=== PATIENT | female | born 1965 | race Caucasian/White ===

== ENCOUNTER 2020-02-23 06:30 | Day surgery (SDC) | payer OTHER, SELFPAY ==
--- NOTE | 2020-02-22 10:28 | HO.ANESPROP2 ---
Documented by User: Joana Graham 02/22/20 15:52 HPI - Anesthesia Eval Consult details Narrative: 54yo F for Colonoscopy Cardiac Clearance appointment for 02/22/20 afternoon, pending receipt [facility] Past Medical History Medical History (Updated 02/23/20 @ 08:14 by Mercy Renee) Asthma Atrial fibrillation CAD (coronary artery disease) Cardiomyopathy CVA (cerebral vascular accident) Depression Diabetes Dyspnea GERD (gastroesophageal reflux disease) Hx of low back pain Hyperlipemia Hypertension ICD (implantable cardioverter-defibrillator) in place Morbid (severe) obesity due to excess calories Myocardial infarct Overactive bladder Rib fractures Sleep apnea Surgical History Surgical History (Updated 02/23/20 @ 07:56 by Mercy Renee) H/O cervical discectomy History of cardiac cath History of urologic surgery Hx of colonoscopy Social History Social History Smoking Status: Light tobacco smoker Smoked in Last 30 Days: Yes Use of substances other than those prescribed or required for medical reasons: No Have you been hit, kicked, punched, or otherwise hurt by someone within the past year? If so, by whom?: No Advance Directives: No Advance Directives Information Provided: Yes Meds Allergies Allergy/AdvReac Type Severity Reaction Status Date / Time No Known Allergies Allergy Unverified 01/21/20 17:23 [No Known Allergies*] Home Medications Medication Instructions Recorded Confirmed Type aspirin [Aspir-81] 81 mg PO DAILY 02/19/20 History budesonide-formoterol [Symbicort] 2 puff INHALATION BID PRN 02/19/20 History carvedilol 25 mg PO BID 02/19/20 History dulaglutide [Trulicity] 1.5 mg SUBCUT QWEEK 02/19/20 History ipratropium bromide 2 puff INHALATION QID 02/19/20 History levalbuterol tartrate [Xopenex HFA] 2 inh INHALATION Q6H 02/19/20 History lorazepam 02/19/20 History losartan 50 mg PO DAILY 02/19/20 History metformin 1,000 mg PO DAILY 02/19/20 History metoprolol tartrate 50 mg PO BID 02/19/20 History omeprazole 20 mg PO DAILY 02/19/20 History pravastatin 80 mg PO BEDTIME 02/19/20 History sertraline [Zoloft] 25 mg PO DAILY 02/19/20 History spironolactone 12.5 mg PO DAILY 02/19/20 History warfarin [Coumadin] 5 mg PO DAILY 02/19/20 History Exam Exam Date and Time: February 22, 2020 1028 Documented by User: Mercy Renee 02/23/20 08:16 [facility] Past Medical History Medical History (Updated 02/23/20 @ 08:14 by Mercy Renee) Asthma Atrial fibrillation CAD (coronary artery disease) Cardiomyopathy CVA (cerebral vascular accident) Depression Diabetes Dyspnea GERD (gastroesophageal reflux disease) Hx of low back pain Hyperlipemia Hypertension ICD (implantable cardioverter-defibrillator) in place Morbid (severe) obesity due to excess calories Myocardial infarct Overactive bladder Rib fractures Sleep apnea Family History Family history of problems with anesthesia: No Surgical History Surgical History (Updated 02/23/20 @ 07:56 by Mercy Renee) H/O cervical discectomy History of cardiac cath History of urologic surgery Hx of colonoscopy History of Problems with Anesthesia: Yes (Nausea) Social History Social History Smoking Status: Light tobacco smoker Smoked in Last 30 Days: Yes Use of substances other than those prescribed or required for medical reasons: No Have you been hit, kicked, punched, or otherwise hurt by someone within the past year? If so, by whom?: No Advance Directives: No Advance Directives Information Provided: Yes Meds Allergies Allergy/AdvReac Type Severity Reaction Status Date / Time No Known Allergies Allergy Unverified 01/21/20 17:23 [No Known Allergies*] Home Medications Medication Instructions Recorded Confirmed Type aspirin [Aspir-81] 81 mg PO DAILY 02/19/20 History budesonide-formoterol [Symbicort] 2 puff INHALATION BID PRN 02/19/20 History carvedilol 25 mg PO BID 02/19/20 History dulaglutide [Trulicity] 1.5 mg SUBCUT QWEEK 02/19/20 History ipratropium bromide 2 puff INHALATION QID 02/19/20 History levalbuterol tartrate [Xopenex HFA] 2 inh INHALATION Q6H 02/19/20 History lorazepam 02/19/20 History losartan 50 mg PO DAILY 02/19/20 History metformin 1,000 mg PO DAILY 02/19/20 History metoprolol tartrate 50 mg PO BID 02/19/20 History omeprazole 20 mg PO DAILY 02/19/20 History pravastatin 80 mg PO BEDTIME 02/19/20 History sertraline [Zoloft] 25 mg PO DAILY 02/19/20 History spironolactone 12.5 mg PO DAILY 02/19/20 History warfarin [Coumadin] 5 mg PO DAILY 02/19/20 History Exam Height,Weight and Vital Signs: Vital Signs Temp Pulse Resp BP Pulse Ox 02/23/20 07:03 97.2 F 79 16 131/79 94 Pertinent Lab Results Pertinent Lab Results: Echo?when: LV poorly visualized. LV Systolic function is severely reduced. EF 25-30%. Moderate global hypokinesis with regional variation. Mid to distal anterior, anteroseptal and apical wall akinesis. Impaired LV relaxation.LV filling pressures normal. RV grossly normal. 02/23/20 07:00 PT with INR [Prothrombin Time INR] Stat 02/23/20 07:01 Glucose, Whole Blood Routine 02/23/20 07:30 Metoclopramide HCl [Reglan] 10 mg .ROUTE .STK-MED ONE Laboratory Last Values PT 12.2 SEC (10.8-13.0) 02/23/20 07:00 INR 1.0 (0.9-1.1) 02/23/20 07:00 POC Glucose 148 mg/dL (60-115) H 02/23/20 07:01 Airway Mallampati Class: III (Small mouth, high arched palate) TM Dist: >3cm Neck ROM: Full Heart: RRR Lungs: CTAB Assessment and Plan Assessment Anesthesia Assessment: Anesthesia Plan Discussed and Chart Reviewed Final Anesthetic Review NPO: Yes ASA Class: IV Final Preanesthetic Review: No Changes in Pt Med Stat, Meds/Allgs Chart Reviewed, Consent Obtained/Reviewed and Anes Risks/Benef Reviewed Patient Risk: High Procedure Risk: Low Anesthetic Plan Anesthetic Plan: MAC: (Patient aware she is at high risk for anesthesia. Was also discussed by kicking machine operator.) Disposition: Standard PACU and Extended PACU
[2020-02-23 06:40] VITALS: BMI 45.4
[2020-02-23 07:03] VITALS: BP 131/79; PULSE 79; RESP 16; TEMP 36.2; O2SAT 94
[2020-02-23 07:09] LABS: Glucose, Whole Blood 148 mg/dL (60-115)
[2020-02-23 07:17] LABS: Prothrombin Time 12.2 SEC (10.8-13.0)
--- NOTE | 2020-02-23 07:51 | MHC.SHP ---
Pre-Procedural Eval Section A The patient is an INPATIENT: No The History & Physical has been completed within 30 days and I have reviewed it.: No Section B Chief Complaint: HX Adenomatous Polyps Details of Present Illness: Colon cancer screening Multiple medical problems--CALLIE Relevant Family History (Specify if Yes): No Relevant Social History: None Present Medications: see Short Stay Collaborative assessment Medical History: Significant History (CALLIE, Morbid Obesity, [id number] LV function-apical thrombus, S/P embolic issures, atrial fibrillation, Asthma) History of Previous Operations: No relevant previous surgery Allergies: Allergies Allergy/AdvReac Type Severity Reaction Status Date / Time No Known Allergies Allergy Unverified 01/21/20 17:23 [No Known Allergies*] Review of Systems Sugical H&P ROS: Negative: Constitution, Neurological, Psychiatric and Gastrointestinal and Yes, Specify: Cardiovascular (see HPI) and Respiratory (CALLIE--asthma) Review of Systems Comment: Patient does not use CPAP; She uses her inhalers prn. Exam Surgical H&P Exam: Normal: HEENT, Normal: Heart and Normal: Extremities and Significant Findings: Lungs (rhonchi, expiratory wheezing) and Significant Findings: Abdomen (marked obesity) Plan Diagnosis/Plan: Unchanged Patient has been examined and remains a candidate for the planned procedure; yes
[2020-02-23] MEDS: Albuterol Sulfate (0.083%) 2.5 MG/3 ML VIAL.NEB INHALE (08:02)
[2020-02-23 08:53] VITALS: BP 120/73; PULSE 86; RESP 16; TEMP 37.6; O2SAT 96
--- NOTE | 2020-02-23 08:53 | PM.PROC ---
Brief Operative Note Date of procedure: 02/23/20 Pre-op diagnosis: Colon cancer screening; Hx Tubular adenoma Post-op diagnosis: other (removed 2 tubular adenomas, Internal Hemorrhoids) Procedure: Colonoscopy with excisional polypectomy x1, Hot snare polypectomy small hex--ERBE Anesthesia: MAC (JUAN Souza) Surgeon: Mila Oliveros Pathology: other (Ileocecal valve, rectal about 4 cm) Condition: stable Disposition: PACU
[2020-02-23 09:10] VITALS: BP 139/83; PULSE 77; RESP 16; TEMP 36.6; O2SAT 97
--- NOTE | 2020-02-23 09:42 | HO.POSTANES ---
Post Anesthesia Evaluation Post Anesthesia Evaluation Vital Signs: Vital Signs Temp Pulse Resp BP Pulse Ox 02/23/20 09:10 97.8 F 77 16 139/83 97 02/23/20 08:53 99.7 F 86 16 120/73 96 02/23/20 07:03 97.2 F 79 16 131/79 94 Anesthesia: Monitored Mental Status: Awake Pain Control: Satisfactory Nausea/Vomiting: None Hydration: Adequate Anesthesia-Related Issues: No Anes. Related Issues
--- NOTE | 2020-02-23 09:59 | OP_ITS ---
SURGEON: Mila Oliverso MD PREOPERATIVE DIAGNOSIS: History of tubular adenoma PROCEDURE PERFORMED: Colonoscopy with excisional polypectomy x1 using cold biopsy forceps, hot snare polypectomy x1; hexagonal small snare, Erbe cautery. ESTIMATED BLOOD LOSS: Minimal. COMPLICATIONS: None. ANESTHESIA: Monitored. ANESTHESIOLOGIST: Marisela Souza CRNA. ASSISTANTS: No teacher's assistant. SPECIMENS: Specimens removed; diminutive polyp, ileocecal valve, rectal polyp, 1 to 2 mm. POSTOPERATIVE DIAGNOSES: Two tubular adenomas removed, internal hemorrhoids. FILTER WORKER: Dr. Oliveros. FINDINGS: Digital rectal exam revealed no specific lesion. Video colonoscope was introduced without difficulty. It was navigated into the rectosigmoid and sigmoid, slowly on up through sigmoid, descending, transverse ascending colon. With gentle extrinsic abdominal pressure, we were able to facilitate movement into the cecum. Appendiceal orifice was seen. Ileocecal valve was seen. Various areas were flushed and suctioned throughout the procedure. Prep overall was good. There was a diminutive polyp noted on the edge of the ileocecal valve. This was removed excisionally with a cold biopsy forceps. Slow rotational views on withdrawing the scope. Additional polyp was noted in the rectum at approximately 3 to 4 cm in from the anorectal verge. This was removed with hot snare cautery, clean base. PLAN AND CURRENT RECOMMENDATIONS: Repeat asymptomatic screening in this patient is 5 years. Note, this patient has a number of comorbid conditions.She would have to be seen and cleared by bothCardiology and Pulmonary if repeat exam is entertained. CALLIE does not use CPAP. She has underlying questionable asthma, was given preop neb treatment for this procedure. She does have clinically end-expiratory wheezing and scattered rhonchi at least today on the day of this procedure. GRAFT OR IMPLANTS: No grafts or implants. CONDITION: Postprocedure, stable. Mila Oliveros MD MEN/MODL / [id number] MTDD
== END 2020-02-23 09:42 | disposition home or self-care (01) ==
PROVIDERS: PCP Internal Medicine; Visit Provider Internal Medicine Gastroenterology
PROC: 0DJD8ZZ Inspection of Lower Intestinal Tract, Via Natural or Artificial Opening Endoscopic (ICD-10-PCS; CPT 45378; principal; 2020-02-23 07:30)
DX: Z12.11 Encounter for screening for malignant neoplasm of colon (principal); Z86.010 Personal history of colon polyps; D12.0 Benign neoplasm of cecum; D12.8 Benign neoplasm of rectum; K64.8 Other hemorrhoids; E11.9 Type 2 diabetes mellitus without complications; E66.01 Morbid (severe) obesity due to excess calories; I48.91 Unspecified atrial fibrillation; G47.33 Obstructive sleep apnea (adult) (pediatric); J45.909 Unspecified asthma, uncomplicated; I25.10 Atherosclerotic heart disease of native coronary artery without angina pectoris; Z98.61 Coronary angioplasty status; Z79.84 Long term (current) use of oral hypoglycemic drugs; Z99.89 Dependence on other enabling machines and devices; Z79.899 Other long term (current) drug therapy; Z87.891 Personal history of nicotine dependence
CPT/HCPCS: 45385; 45380; 36415; 82947; 85610; 88305; 94640; J2765

== ENCOUNTER → 2020-03-07 13:31 | Outpatient (BNVA) | payer OTHER, SELFPAY | PROVIDERS: PCP Internal Medicine; Referring Provider Internal Medicine; Visit Provider Nurse Practitioner | DX: D12.6 Benign neoplasm of colon, unspecified (principal); K21.9 Gastro-esophageal reflux disease without esophagitis; Z98.890 Other specified postprocedural states | CPT/HCPCS: 99212 ==